=== PATIENT | male | born 1980 | race Two or more races ===

== ENCOUNTER 2019-11-05 16:33 | Emergency (ER) | payer OTHER ==
[~2019-11-05] VITALS: Ht 172.7 cm; Wt 160.0 kg
[2019-11-05 17:02] LABS: BASOPHILS # (AUTO) 0.01 x10^3/uL (0-0.1); BASOPHILS % (AUTO) 0 % (0-1); EOSINOPHILS # (AUTO) 0.15 x10^3/uL (0-0.4); EOSINOPHILS % (AUTO) 2 % (1-7); LYMPHOCYTES # (AUTO) 0.65 x10^3/uL (1-3.4); LYMPHOCYTES % (AUTO) 11 % (22-44); MD NO; MEAN CORPUSCULAR HGB CONC 32.1 g/dL (33.2-36.2); MEAN CORPUSCULAR VOLUME 84.2 fL (81-97); MONOCYTES # (AUTO) 0.29 x10^3/uL (0.2-0.8); MONOCYTES % (AUTO) 5 % (2-9); NEUTROPHILS % (AUTO) 82 % (42-75); PLATELET COUNT 432 x10^3/uL (130-400); RED BLOOD COUNT 3.78 x10^6/uL (4.38-5.82); RED CELL DISTRIBUTION WIDTH 16.5 % (9.4-14.8)
[2019-11-05 17:14] LABS: ALBUMIN 3.7 g/dL (3.4-5.0); ANION GAP 14 mmol/L (5-15); CHLORIDE 108 mmol/L (98-107)
[2019-11-05 17:20] LABS: ALANINE AMINOTRANSFERASE 62 U/L (12-78); ALKALINE PHOSPHATASE 85 U/L (45-117); TOTAL PROTEIN 7.5 g/dL (6.4-8.2)
--- NOTE | 2019-11-05 17:28 | NUR ---
pt back from x ray.
[2019-11-05] MEDS ORDERED: SODIUM CHLORIDE FLUSH 10ML SYR IVF ONE (18:00)
--- NOTE | 2019-11-05 18:58 | NUR ---
PT IN CT.
[2019-11-05] MEDS ORDERED: DIPHENHYDRAMINE 50 MG/ML, 1ML ONE (19:04)
[2019-11-05] MEDS ORDERED: FAMOTIDINE 20 MG/2 ML ONE (19:04)
[2019-11-05] MEDS ORDERED: POTASSIUM CHLORIDE 20 MEQ TAB.ER.PRT ONE (19:12)
[2019-11-05] MEDS ORDERED: OMNIPAQUE 350 MG/ML, 75ML BOTTLE ONE (19:17)
[2019-11-05 20:14] VITALS: BP 104/39
[2019-11-05] MEDS ORDERED: POTASSIUM CHLORIDE 20 MEQ TAB.ER.PRT PO SCH (21:00)
== END 2019-11-05 21:31 | disposition home or self-care (01) ==
LOC: ED 19:26
DX: R00.0 Tachycardia, unspecified (principal); R06.00 Dyspnea, unspecified; I10 Essential (primary) hypertension
CPT/HCPCS: 36415; 71045; 71275; 74018; 80053; 83880; 85025; 85379; 93005; 99285; Q9967

== ENCOUNTER 2019-11-27 05:51 | Emergency (ER) | payer OTHER ==
[~2019-11-27] VITALS: Ht 180.3 cm; Wt 156.7 kg
[2019-11-27] MEDS ORDERED: MORPHINE SULFATE 4 MG/ML, 1ML ONE ×2 (06:28→07:47)
[2019-11-27] MEDS ORDERED: ONDANSETRON 2MG/ML, 2ML ONE (06:28)
[2019-11-27] MEDS ORDERED: ONDANSETRON 2MG/ML, 2ML IVPush ONE (06:30)
[2019-11-27] MEDS: MORPHINE SULFATE 4 MG/ML, 1ML IVPush PRN ×2 (06:31→07:48)
--- NOTE | 2019-11-27 06:36 | NUR ---
PT RESTING IN BED, PT HAS NO WANTS OR NEEDS AT THIS TIME, PT ON MONITOR AND [employer] WILL CONTINUE TO MONITOR PT VITALS
[2019-11-27 06:40] LABS: BASOPHILS # (AUTO) 0.02 x10^3/uL (0-0.1); BASOPHILS % (AUTO) 1 % (0-1); EOSINOPHILS # (AUTO) 0.15 x10^3/uL (0-0.4); EOSINOPHILS % (AUTO) 3 % (1-7); LYMPHOCYTES # (AUTO) 0.56 x10^3/uL (1-3.4); LYMPHOCYTES % (AUTO) 11 % (22-44); MD NO; MEAN CORPUSCULAR HEMOGLOBIN 23.8 pg (27.5-34.5); MEAN CORPUSCULAR HGB CONC 30.8 g/dL (33.2-36.2); MEAN CORPUSCULAR VOLUME 77.3 fL (81-97); MEAN PLATELET VOLUME 8.7 fL (7.4-10.4); MONOCYTES # (AUTO) 0.36 x10^3/uL (0.2-0.8); MONOCYTES % (AUTO) 7 % (2-9); NEUTROPHILS # (AUTO) 3.95 x10^3/uL (1.8-6.8); NEUTROPHILS % (AUTO) 78 % (42-75); PLATELET COUNT 367 x10^3/uL (130-400); RED BLOOD COUNT 4.16 x10^6/uL (4.38-5.82); RED CELL DISTRIBUTION WIDTH 20.4 % (9.4-14.8)
[2019-11-27 06:46] LABS: MICROSCOPIC INDICATED
[2019-11-27 06:46] LABS: ALANINE AMINOTRANSFERASE 65 U/L (12-78); ALBUMIN 3.5 g/dL (3.4-5.0); ANION GAP 9 mmol/L (5-15); CHLORIDE 111 mmol/L (98-107); CREATININE 0.72 mg/dL (0.7-1.3)
[2019-11-27 06:49] LABS: ALKALINE PHOSPHATASE 81 U/L (45-117); BILIRUBIN,TOTAL 1.2 mg/dL (0.2-1.0)
--- NOTE | 2019-11-27 07:10 | NUR ---
TOOK REPORT FROM BRANDON NICHOLE, ASSUME CARE AT THIS TIME.
--- NOTE | 2019-11-27 07:11 | NUR ---
PT TO CT
--- NOTE | 2019-11-27 07:45 | NUR ---
PT BACK FROM CT, REPORTS PAIN 8/10 LEFT LOWER ABD PAIN. REQUESTING WATER, EDU ON NPO
[2019-11-27] MEDS ORDERED: KETOROLAC 30 MG/1 ML ONE (08:21)
[2019-11-27] MEDS ORDERED: KETOROLAC 30 MG/1 ML IVPush ONE (08:30)
[2019-11-27 08:45] VITALS: BP 154/62
== END 2019-11-27 08:47 | disposition home or self-care (01) ==
LOC: ED 07:04
DX: N20.1 Calculus of ureter (principal); J45.909 Unspecified asthma, uncomplicated; I10 Essential (primary) hypertension; Z98.84 Bariatric surgery status; Z88.8 Allergy status to other drugs, medicaments and biological substances
CPT/HCPCS: 36415; 74176; 80053; 81001; 83690; 85025; 96374; 96375; 96376; 99284; J1885; J2270; J2405